=== PATIENT | female | born 1995 | race Caucasian/White ===

== ENCOUNTER 2016-09-06 14:16 | Emergency (ER) | payer SELFPAY ==
--- NOTE | 2016-09-06 15:13 | ER Document Report ---
HPI - HPI Patient complains to provider of: Left elbow pain Onset: Yesterday - 7 PM Onset/Duration: Sudden Pain Level: 2 Context: 21-year-old female slipped and fell with an outstretched arm which injured her left elbow. 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 She is unable to straighten it completely. No previous injury. - DERM Skin Color: Normal Past Medical History - General Information source: Patient - Social History Smoking Status: Unknown if Ever Smoked Frequency of alcohol use: None Drug Abuse: None Lives with: Family Family History: Reviewed & Not Pertinent Patient has suicidal ideation: No Patient has homicidal ideation: No - Medical History Medical History: Negative Renal/ Medical History: Denies: Hx Peritoneal Dialysis Surgical Hx: Negative - Immunizations Immunizations up to date: Yes Hx Diphtheria, Pertussis, Tetanus Vaccination: Yes Vertical Provider Document - CONSTITUTIONAL Agree With Documented VS: Yes Exam Limitations: No Limitations General Appearance: No Apparent Distress - INFECTION CONTROL TRAVEL OUTSIDE OF THE [place] IN LAST 30 DAYS: No - HEENT HEENT: Normocephalic - NECK Neck: Supple - RESPIRATORY O2 Sat by Pulse Oximetry: 99 - MUSCULOSKELETAL/EXTREMETIES Musculoskeletal/Extremeties: No Edema. negative: FROM, Tender - No specific bony tenderness but with attempted full extension complains of pain at the left olecranon Notes: 2+ radial pulse - NEURO Level of Consciousness: Awake, Alert, Appropriate Motor/Sensory: No Motor Deficit, No Sensory Deficit - DERM Integumentary: Warm, Dry, No Rash Course - Re-evaluation Re-evalutation: 09/06/16 16:25 Probable joint effusion per radiologist. Therefore will splint in place and sling and referred to orthopedics - Vital Signs Vital signs: Temp Pulse Resp BP Pulse Ox 98.0 F 74 15 118/63 99 09/06/16 14:23 09/06/16 14:23 09/06/16 14:23 09/06/16 14:23 09/06/16 14:23 Procedures - Immobilization Left Arm Time completed: 17:10 Pre-Proc Neuro Vasc Exam: Normal Immobilizer type: Long arm posterior - with sling Performed by: PCT Post-Proc Neuro Vasc Exam: Normal Alignment checked and good: Yes Discharge - Discharge Clinical Impression: Injury of left elbow Qualifiers: Encounter type: initial encounter Qualified Code(s): S59.902A - Unspecified injury of left elbow, initial encounter Elbow effusion Qualifiers: Laterality: left Qualified Code(s): M25.422 - Effusion, left elbow Condition: Good Disposition: HOME, SELF-CARE Instructions: Sling as Treatment ([facility]), Sprain ([facility]), Splint Precautions ([facility]) , Temporary Splint ([facility]) Additional Instructions: splint and sling motrin for pain to er if worse see the orthopedic doctor , call for appt. this week Please complete the patient satisfaction survey if you get one, and return it.. If you do not receive a survey, then you can go to the [facility] website, [email or web address] and place your comments about your very good care. Thank you very much. It was a pleasure being your medical provider today. Prescriptions: Ibuprofen [Motrin 600 mg Tablet] 600 mg PO Q8HP PRN #30 tablet PRN Reason: Forms: Return to Work Referrals: JOSH MARIE MD [ACTIVE STAFF] - Follow up tomorrow (call for appointment this week)
--- NOTE | 2016-09-06 16:16 | RADIOLOGY REPORT (SQ) ---
EXAM DESCRIPTION: ELBOW LEFT OVER 2 VIEWS COMPLETED DATE/TIME: 09/06/2016 4:05 pm REASON FOR STUDY: fall, cant extend fully COMPARISON: None. NUMBER OF VIEWS: Four views. TECHNIQUE: AP, lateral, and both oblique radiographic images acquired of the left elbow. LIMITATIONS: None. FINDINGS: MINERALIZATION: Normal. BONES: No acute fracture or dislocation. No worrisome bone lesions. JOINT: Probable joint effusion. SOFT TISSUES: No soft tissue swelling. No foreign body. OTHER: No other significant finding. IMPRESSION: Joint effusion without identifiable fracture. TECHNICAL DOCUMENTATION: JOB ID: [id number] [employer]- All Rights Reserved
[2016-09-06 17:15] VITALS: BP 112/65
== END 2016-09-06 17:30 | disposition home or self-care (01) ==
LOC: ER 14:16
PROC: 2W39X1Z Immobilization of Left Upper Extremity using Splint (ICD-10-PCS; principal; 2016-09-06)
DX: S59.902A Unspecified injury of left elbow, initial encounter (principal); M25.522 Pain in left elbow; M25.422 Effusion, left elbow; W01.0XXA Fall on same level from slipping, tripping and stumbling without subsequent striking against object, initial encounter
CPT/HCPCS: 99283